=== PATIENT | female | born 1970 | race African-American/Black ===

== ENCOUNTER 2018-09-24 21:30 | Emergency (ER) | payer SELFPAY ==
[~2018-09-24] VITALS: Ht 152.4 cm; Wt 65.9 kg
[~2018-09-24 21:30] MED LIST: ATIVAN 1MG T1 MG/TAB PO; BUSPIRONE HCL7.5 MG PO; CARAFATE 1GM1 G PO; NORCO2.5; PEPCID 20MG TAB20 MG PO; PHENERGAN 25 TA25 MG PO; ZOFRAN ODT4 MG PO
[2018-09-24 21:38] VITALS: BP 121/82; TEMP 98.5
[2018-09-24 23:26] VITALS: PULSE 74
== END 2018-09-24 23:38 | disposition home or self-care (01) ==
LOC: COL.ER 21:30
DX: G43.909 Migraine, unspecified, not intractable, without status migrainosus (principal); K21.9 Gastro-esophageal reflux disease without esophagitis; F17.210 Nicotine dependence, cigarettes, uncomplicated; F12.90 Cannabis use, unspecified, uncomplicated
CPT/HCPCS: J1200; J1885; J2550; J2765; J7030

== ENCOUNTER 2018-10-07 20:03 | Emergency (ER) | payer SELFPAY ==
[~2018-10-07] VITALS: Wt 70.5 kg
[2018-10-07 20:15] VITALS: BP 128/63; TEMP 98
[2018-10-07 21:40] VITALS: PULSE 66
== END 2018-10-07 21:40 | disposition home or self-care (01) ==
LOC: COL.ER 20:03
DX: B08.1 Molluscum contagiosum (principal); J45.909 Unspecified asthma, uncomplicated; F17.210 Nicotine dependence, cigarettes, uncomplicated

== ENCOUNTER → 2019-05-21 | Emergency (ER) | payer SELFPAY | LOC: COL.ER 18:35 | DX: Z72.9 Problem related to lifestyle, unspecified (principal) ==

== ENCOUNTER 2019-08-31 15:07 | Emergency (ER) | payer SELFPAY ==
[~2019-08-31] VITALS: Ht 152.4 cm; Wt 77.3 kg
[2019-08-31 15:08] VITALS: TEMP 98.4
[2019-08-31 15:50] LABS: BASO % 0.3 % (0.0-2.0); EOS # 0.1 (0.0-0.7); EOS % 0.3 % (0-4.0); GRAN # 10.2 (1.4-6.5); GRAN % 68.7 % (42.2-75.2); HEMATOCRIT 50.9 % (37.0-47.0); HEMOGLOBIN 16.7 g/dl (12.5-16.0); LYMPH # 3.8 (1.2-3.4); LYMPH % 25.4 % (20.0-51.0); MEAN CELL VOLUME 84 fl (80.0-100.0); MEAN CORPUSCULAR HEMOGLOBIN 28 pg (27.0-31.0); MEAN CORPUSCULAR HGB CONC 33 g/dl (33.0-37.0); MEAN PLATELET VOLUME 10.1 fl (7.4-10.4); MONO # 0.7 (0.1-0.6); MONO % 4.8 % (1.7-9.3); PLATELET COUNT 312 K/mm3 (130-400); RED BLOOD COUNT 6.08 M/mm3 (4.10-5.30); REDCELL DISTRIBUTION WIDTH-CV 16.7 % (11.5-14.5)
[2019-08-31 15:59] LABS: ALANINE AMINOTRANSFERASE 12 U/L (9-52); ALBUMIN 3.5 gm/dL (3.5-5.0); ALKALINE PHOSPHATASE 65 U/L (50-136); ANION GAP 7 mmol/L (7-16); AST,SGOT 23 U/L (15-37); BILIRUBIN,TOTAL 0.4 mg/dL (0.0-1.0); BLOOD UREA NITROGEN 13 mg/dL (7-17); C-REACTIVE PROTEIN < 0.5 mg/dL (0.0-0.9); CALCIUM 8.2 mg/dL (8.4-10.2); CARBON DIOXIDE 21 mmol/L (22-30); CHLORIDE 110 mmol/L (98-107); CREATININE, serum 0.92 (0.52-1.25); GLUCOSE 116 mg/dL (74-106); LIPASE 37 U/L (23-300); POTASSIUM 3.8 mmol/L (3.4-5.0); SODIUM 137 mmol/L (137-145); TOTAL PROTEIN 6.2 gm/dL (6.4-8.2)
[2019-08-31] MEDS ORDERED: PHENERGAN 25 TA25 MG PO (16:51)
[2019-08-31 17:06] VITALS: BP 116/69; PULSE 86
== END 2019-08-31 17:06 | disposition home or self-care (01) ==
LOC: COL.ER 15:07
PROVIDERS: Emergency Medicine
DX: R10.12 Left upper quadrant pain (principal)
CPT/HCPCS: J0780; J1170; J1885; J7030; Q9967

== ENCOUNTER 2020-11-07 11:16 | Emergency (ER) | payer SELFPAY ==
[~2020-11-07] VITALS: Ht 152.4 cm; Wt 63.6 kg
[2020-11-07 11:41] VITALS: TEMP 98.2
[2020-11-07 12:41] LABS: BASO % 0.4 % (0.0-2.0); EOS # 0.1 (0.0-0.7); EOS % 1.3 % (0-4.0); GRAN # 4.7 (1.4-6.5); GRAN % 55.8 % (42.2-75.2); HEMATOCRIT 48.4 % (37.0-47.0); HEMOGLOBIN 16.1 g/dl (12.5-16.0); LYMPH # 2.7 (1.2-3.4); LYMPH % 31.7 % (20.0-51.0); MEAN CELL VOLUME 83 fl (80.0-100.0); MEAN CORPUSCULAR HEMOGLOBIN 28 pg (27.0-31.0); MEAN CORPUSCULAR HGB CONC 33 g/dl (33.0-37.0); MEAN PLATELET VOLUME 9.8 fl (7.4-10.4); MONO # 0.9 (0.1-0.6); MONO % 10.6 % (1.7-9.3); PLATELET COUNT 335 K/mm3 (130-400); RED BLOOD COUNT 5.84 M/mm3 (4.10-5.30)
[2020-11-07 12:53] LABS: ALANINE AMINOTRANSFERASE 16 U/L (4-34); ALBUMIN 4.2 gm/dL (3.5-5.0); ALKALINE PHOSPHATASE 69 U/L (50-136); ANION GAP 10 mmol/L (7-16); AST,SGOT 32 U/L (15-37); BLOOD UREA NITROGEN 14 mg/dL (7-17); CALCIUM 9.1 mg/dL (8.4-10.2); CARBON DIOXIDE 24 mmol/L (22-30); CHLORIDE 101 mmol/L (98-107); CREATININE, serum 0.97 (0.52-1.25); GLUCOSE 92 mg/dL (74-106); POTASSIUM 3.9 mmol/L (3.4-5.0); SODIUM 135 mmol/L (137-145); TOTAL PROTEIN 7.9 gm/dL (6.4-8.2)
[2020-11-07 12:56] LABS: C-REACTIVE PROTEIN < 0.5 mg/dL (0.0-0.9)
[2020-11-07] MEDS ORDERED: ZOFRAN ODT4 MG PO (14:19)
[2020-11-07 14:46] VITALS: BP 140/88; PULSE 78
== END 2020-11-07 14:36 | disposition home or self-care (01) ==
LOC: COL.ER 11:16
PROVIDERS: Nurse Practitioner
DX: K52.9 Noninfective gastroenteritis and colitis, unspecified (principal); F17.200 Nicotine dependence, unspecified, uncomplicated; Z20.822 Contact with and (suspected) exposure to COVID-19
CPT/HCPCS: J2270; J2405; J7030

== ENCOUNTER 2022-01-25 18:49 | Emergency (ER) | payer SELFPAY ==
[~2022-01-25] VITALS: Ht 152.4 cm; Wt 68.2 kg
[2022-01-25 18:50] VITALS: TEMP 98
[2022-01-25 19:56] LABS: BASO # 0.1 K/mm3 (0.0-0.2); BASO % 0.6 % (0.0-2.0); EOS # 0.3 K/mm3 (0.0-0.7); GRAN # 3.7 K/mm3 (1.4-6.5); GRAN % 43.7 % (42.2-75.2); HEMATOCRIT 41.2 % (37.0-47.0); HEMOGLOBIN 13.9 g/dl (12.5-16.0); LYMPH # 3.5 K/mm3 (1.2-3.4); MEAN CELL VOLUME 82 fl (80.0-100.0); MEAN CORPUSCULAR HEMOGLOBIN 28 pg (27-31); MEAN CORPUSCULAR HGB CONC 34 g/dl (33.0-37.0); MEAN PLATELET VOLUME 10.4 fl (7.4-10.4); MONO # 0.9 K/mm3 (0.1-0.6); MONO % 10.2 % (1.7-9.3); PLATELET COUNT 316 K/mm3 (130-400); RED BLOOD COUNT 5.03 M/mm3 (4.10-5.30); REDCELL DISTRIBUTION WIDTH-CV 15.3 % (11.5-14.5)
[2022-01-25 20:15] LABS: ERYTHROCYTE SEDIMENTATION RATE 1 mm/hr (0-20)
[2022-01-25 20:33] LABS: ALBUMIN 3.4 gm/dL (3.5-5.0); BILIRUBIN,TOTAL 0.2 mg/dL (0.2-1.2); C-REACTIVE PROTEIN 0.09 mg/dL (0.00-0.50); CALCIUM 8.3 mg/dL (8.4-10.2); CREATININE, serum 0.8 mg/dL (0.57-1.11); POTASSIUM 4.4 mmol/L (3.5-4.5); TOTAL PROTEIN 6.1 gm/dL (6.2-8.1)
[2022-01-25] MEDS ORDERED: NORCO 325 MG-51 TAB PO (21:40)
[2022-01-25] MEDS ORDERED: NAPROSYN500 MG PO (21:40)
[2022-01-25 22:10] VITALS: BP 125/59; PULSE 63
== END 2022-01-25 22:12 | disposition home or self-care (01) ==
LOC: COL.ER 18:49
PROVIDERS: Emergency Medicine; Nurse Practitioner Primary Care
DX: M79.672 Pain in left foot (principal); F17.210 Nicotine dependence, cigarettes, uncomplicated; Z28.310 Unvaccinated for COVID-19
CPT/HCPCS: J1885; J2270